=== PATIENT | male | born 1945 | race Caucasian/White ===

== ENCOUNTER → 2016-08-12 | Day surgery (SDC) | payer OTHER ==
[2016-08-05 08:34] VITALS: Ht 166.4 cm; Wt 68.2 kg
--- NOTE | 2016-08-11 21:29 | HISTORY & PHYSICAL EXAMINATION ---
DATE OF ADMISSION: 05/08/2015 DIAGNOSIS: Perforation of the left ear. HISTORY OF PRESENT ILLNESS: This 71-year-old gentleman presented with a history of perforation of the left ear after a welding burn. He had a repair in [place] which was unsuccessful. He also underwent repair at [facility] by mo last year which was again unsuccessful. The patient still desires repair of the left tympanic membrane. PAST MEDICAL HISTORY: Medical problems: Hypertension, acid reflux, and arthritis. MEDICATIONS: Meloxicam, gabapentin, vitamin D, Zocor, and lisinopril. ALLERGIES: HE DOES NOT TOLERATE PAIN MEDICATIONS VERY WELL. PREVIOUS SURGERIES: Right knee in February [address] Echeverria and left ear surgery by me in April 2015. REVIEW OF SYSTEMS: Otherwise, negative. PHYSICAL EXAMINATION: GENERAL: WNWD male. VITAL SIGNS: 5 feet 5 inches and 150 pounds. HEAD: Normocephalic. EYES: Normal. EARS: Perforation of the left tympanic membrane. NOSE: Nasal passages patent. THROAT: Oropharynx normal. NECK: Supple. HEART: RRR. LUNGS: Clear. ABDOMEN: Soft. IMPRESSION: Perforation of the left tympanic membrane. PLAN: Plan is for tympanoplasty.
[~2016-08-12] VITALS: Ht 166.4 cm; Wt 68.2 kg
[~2016-08-12] MED LIST: ATROPINE SULFATE 0.1 MG/ML 5ML SYR IV PRN; CEFAZOLIN 1000MG/55 ML D5W IV SCH; CHOL100010 PO; COEN50CA22 PO; EpHEDrine SULFATE INJ 50 MG/ML AMP IV PRN; FENTANYL CITRATE INJ 50 MCG/1 ML 2 ML VIAL IV PRN; FENTANYL CITRATE INJ 50 MCG/1 ML 2 ML VIAL ONE; FLUT0.15 NAE; GELATIN SPONGE 12-7MM ONE; LACTATED RINGER'S 1000ML 1,000 ML IV SCH; LIDO 2%/EPINEPHRINE 1:100000 20 ML VIAL INFIL ONE; LISI-461 PO; MELO15TA4 PO; MIDAZOLAM HCL 1 MG/ML 2ML VIAL ONE; NEOMYCIN/POLYMYXIN/BACITR/HC 15 GM TUBE ONE; NEOMYCIN/POLYMYXIN/HYDROCORT OPH SUSP 7.5 ML BTL ONE; NRN/300 PO; NRN/600 PO; ONDANSETRON INJ 2 MG/ML 2 ML VIAL IV PRN; ONDANSETRON INJ 2 MG/ML 2 ML VIAL ONE; PANT40TA PO; SIMV40TA2 PO; SODIUM CHLORIDE 0.9% 1000ML 1,000 ML IV SCH
--- NOTE | 2016-08-12 08:37 | History & Physical Bridge Note ---
H&P Re-Evaluation Bridge Note: I have examined the patient, reviewed the History & Physical and in the interval since the performance of the History & Physical I have noted the following changes of clinical significance: No changes noted
[2016-08-12 10:05] VITALS: TEMP 36.6
--- NOTE | 2016-08-12 10:17 | Discharge Instructions-SurgCtr ---
Discharge Instructions Date of Service August 12, 2016. Visit Reason for Visit: Left Ear Perforation Discharge Discharge Diagnosis / Problem: same Discharge Goals Goal(s): Therapeutic intervention Activity Recommendations Activity Limitations: per Instructions/Follow-up section Anesthesia . Post Anesthesia Instructions: If you have had General Anesthesia or IV Sedation: * Do not drive today. * Resume driving when surgeon permits. * Do not make important decisions or sign legal documents today. * Call surgeon for: 1. Temperature elevations greater than 101 degrees F. 2. Uncontrollable pain. 3. Excessive bleeding. 4. Persistent nausea and vomiting. 5. Medication intolerance (nausea, vomiting or rash). * For nausea and vomiting use only clear liquids such as: tea, soda, bouillon until nausea subsides, then gradually increase diet as tolerated. * If you have any concerns or questions, call your surgeon's office. If physician is unavailable and it is an emergency, call 911 or go to the nearest emergency room. . Instructions / Follow-Up Instructions / Follow-Up ACTIVITY RECOMMENDATIONS: No limitations OVER THE COUNTER MEDICATIONS: Continue any other previous medications unless otherwise indicated by your surgeon. * You may use Tylenol for mild pain as per bottle instructions. SPECIAL CARE INSTRUCTIONS: * Keep operative ear dry. * Change cotton balls 4 times per day. Leave packing in ear. * Sneeze with your mouth open. * Do not blow your nose. Sniff back instead. * Please call with any increasing pain, increasing drainage, active bleeding, redness and/or swelling, or any concerns. Dr. Hatfield's office number is . FOLLOW UP VISIT: If not already scheduled, please call to schedule follow-up appointment with Dr. Hatfield. Diet Recommendations Home Diet: no limitations Procedures Procedures Performed: Left Ear Tympanoplasty Pending Studies Studies pending at discharge: no Medical Emergencies . Who to Call and When: Medical Emergencies: If at any time you feel your situation is an emergency, please call 911 immediately. . Non-Emergent Contact Non-Emergency issues call your: Primary Care Provider . . "Provider Documentation" section prepared by Xochilt Hatfield. . [place] Drug Monitoring Program Search Results: no issues identified
--- NOTE | 2016-08-12 10:17 | Anesthesia Progress Nt - [facility] ---
Anesthesia Post Op Note Date & Time August 12, 2016 at 10:17 Vital Signs Pain Intensity: 0 Vital Signs Past 12 Hours Date Time Temp Pulse Resp B/P Pulse Ox O2 Delivery O2 Flow Rate FiO2 08/12/16 10:05 36.6 69 14 143/91 98 Room Air 08/12/16 07:37 36.5 66 16 119/81 96 Room Air Notes Mental Status: alert / awake / arousable, participated in evaluation Pt Amnestic to Procedure: Yes Nausea / Vomiting: adequately controlled Pain: adequately controlled Airway Patency, RR, SpO2: stable & adequate BP & HR: stable & adequate Hydration State: stable & adequate Anesthetic Complications: no major complications apparent
[2016-08-12 10:29] VITALS: BP 125/80; PULSE 72; O2SAT 98
--- NOTE | 2016-08-12 11:51 | OPERATIVE REPORT ---
DATE OF OPERATION: 08/12/2016 PREOPERATIVE DIAGNOSIS: Perforation of the left tympanic membrane. POSTOPERATIVE DIAGNOSIS: Same. PROCEDURE: Tympanoplasty left ear. SURGEON: Dr. Hatfield. ANESTHESIA: Local with sedation. COMPLICATIONS: None. BLOOD LOSS: Less than 5 mL. HISTORY OF PRESENT ILLNESS: This 71-year-old gentleman presented with a perforation of the left ear from a welding burn, was repaired in [place] once and also [place] once last April. He continues to have a residual 3 mm perforation much smaller than the large perforation that he had. Because of the conductive component of the hearing loss, the patient requested definitive treatment. OPERATION AND FINDINGS: PROCEDURE: The patient was brought to the operating room and placed in supine position. He was sedated, prepped with Betadine paint and draped in usual sterile manner. The left canal was visualized and cleaned of cerumen, injected with 2% Xylocaine with 1:100,000 strength epinephrine as was the supra-auricular area. The supra-auricular incision was made using the 15 blade, carried down through the skin and subcutaneous layer and a piece of temporalis fascia was harvested and set aside for use later in the fascia press. Bleeding was controlled using the needle point Bovie and the incision was closed with interrupted 4-0 Vicryl sutures and Dermabond on the skin. Attention was turned to the canal. Incision was made at 11 o'clock anteriorly and then incised with [place] blade and then continuing the incision inferiorly onto the inferior canal wall and then onto the posterior canal wall in a curvilinear fashion. The tympanomeatal flap was elevated using the [place] blade and also using the round knife entering the middle ear space in the hypotympanum and then continuing the elevation superiorly into the previously made incision at 11:00. The canal skin was also elevated from the posterior and inferior canal wall and the entire tympanomeatal flap was reflected superiorly. In this manner the middle ear was exposed. Ossicular continuity was noted to be intact. Middle ear space was filled with pieces of dry Gelfoam and temporalis fascia was placed in the underlay manner tucked anteriorly and superiorly and placed onto the annulus anteriorly and inferiorly along the canal wall. The tympanomeatal flap was reflected back into its original position. All the edges of the perforation had been freshened using the right angle pick. The graft was noted to be covering all edges of the perforation and protruding only slightly from the perforation. Then this graft along with the tympanomeatal flap was packed back into the canal wall in its original position with pieces of Gelfoam, at first dry and then later dipped with Cortisporin. The canal was then filled with Cortisporin ointment. The cotton dressing was placed in the canal. The patient tolerated the procedure well and was taken to recovery area in satisfactory condition. I attest to the content of the Intraoperative Record and any orders documented therein. Any exceptio ns are noted below.
== END | disposition home or self-care (01) ==
LOC: X.SURG 06:47
PROVIDERS: ATTEND Otolaryngology
DX: H72.92 Unspecified perforation of tympanic membrane, left ear (principal)

== ENCOUNTER 2020-01-10 10:28 | Inpatient (IN) ==
--- NOTE | 2019-12-31 16:46 | PAT Medication Instructions ---
Medication Instructions Date of Service December 31, 2019 Home Medications cholecalciferol (vitamin D3) [Vitamin D3] 25 mcg PO QAM coenzyme Q10 [Co Q-10] 50 mg PO PM fluticasone propionate [Flonase] 1 spray INTRANASAL QAM gabapentin 300 mg PO QAM gabapentin 600 mg PO HS lisinopril 10 mg PO QAM meloxicam 15 mg PO QAM nifedipine 30 mg PO PM pantoprazole 40 mg PO PM simvastatin 40 mg PO PM ASK your surgeon for instructions meloxicam 15 mg PO QAM STOP taking 2 weeks before surgery coenzyme Q10 [Co Q-10] 50 mg PO PM DO NOT take the morning of surgery cholecalciferol (vitamin D3) [Vitamin D3] 25 mcg PO QAM lisinopril 10 mg PO QAM Take morning of surgery With a small sip of water, OTHERWISE NOTHING TO EAT OR DRINK AFTER MIDNIGHT: fluticasone propionate [Flonase] 1 spray INTRANASAL QAM gabapentin 300 mg PO QAM Take evening before surgery gabapentin 600 mg PO HS nifedipine 30 mg PO PM pantoprazole 40 mg PO PM simvastatin 40 mg PO PM Other Notes If you have any questions please call us at [phone] or [phone] or [phone] or [phone]
--- NOTE | 2020-01-01 14:01 | Anesthesiology Consultation ---
Date of Service January 01, 2020 Assessment & Plan (1) Encounter for pre-operative examination: COVID Status: As of 12/31 assessment, patient denies travel to endemic area, known exposure/sick contacts, or symptoms of COVID19. Patient instructed that they and their household members must follow strict social distancing guidelines, wear a mask in public and avoid travel for 14 days prior to surgery. Preoperative COVID19 testing to be completed prior to surgery per surgeon's ar rangements. Patient made aware to self-isolate as much as possible between COVID testing and surgery. Chart Review Chart Review: Acceptable Risk for Surgery and Patient seen in Pre Admission Testing Teaching & Discussion Instructed NPO after midnight before surgery, except medications with 15 cc of w ater. Medication instructions provided according to the PAT guidelines. History Surgery Operation Date: 01/10/20 11:55 Proposed Procedures p L4-S1 Decompression and Fusion, L3-L4 Hardware Removal, Spinal Cord Monitoring - Rodolfo Valverde, Height/Weight Height: 5 ft 5.5 in Weight: 72.3 kg Allergies Allergy/AdvReac Type Severity Reaction Status Date / Time amitriptyline Allergy Unknown UNKNOWN Verified 12/25/19 14:19 REACTION cyclobenzaprine Allergy Unknown UNKNOWN Verified 12/25/19 14:19 REACTION prednisone Allergy Elevated Verified 01/01/20 14:02 BP, chest pain, couldn't breathe codeine AdvReac Mild GI UPSET Verified 12/25/19 14:19 etodolac AdvReac Mild gi upset Verified 12/25/19 14:19 morphine AdvReac Mild GI UPSET Verified 12/25/19 14:19 Medications Home Medications Medication Instructions Recorded Confirmed Last Taken cholecalciferol (vitamin D3) 25 mcg PO QAM 12/25/19 12/25/19 Unknown [Vitamin D3] coenzyme Q10 [Co Q-10] 50 mg PO PM 12/25/19 12/25/19 Unknown fluticasone propionate [Flonase] 1 spray INTRANASAL QAM 12/25/19 12/25/19 Unknown gabapentin 300 mg PO QAM 12/25/19 12/25/19 Unknown gabapentin 600 mg PO HS 12/25/19 12/25/19 Unknown lisinopril 10 mg PO QAM 12/25/19 12/25/19 Unknown meloxicam 15 mg PO QAM 12/25/19 12/25/19 Unknown nifedipine 30 mg PO PM 12/25/19 12/25/19 Unknown pantoprazole 40 mg PO PM 12/25/19 12/25/19 Unknown simvastatin 40 mg PO PM 12/25/19 12/25/19 Unknown Past Medical History Medical History (Updated 01/01/20 @ 14:03 by Max Vo) Degenerative disc disease GERD (gastroesophageal reflux disease) Hyperlipidemia Hypertension Osteoarthritis Exercise / Class Metabolic Activity II 4-5 Yardwork/Stairs/Walk up hill Past Surgical History Surgical History (Updated 01/01/20 @ 13:57 by Max Vo) Fusion of spine L3-L4 History of arthroscopy RIGHT SHOULDER History of carpal tunnel release BILAT History of colonoscopy History of right knee joint replacement with subsequent revision History of tonsillectomy History of tooth extraction Hx of inguinal hernia repair X2 Hx of thumb surgery BILAT Hx of vasectomy Past Anesthesia History No Hx of Anesthesia Complications and No Family Hx of Anesthesia Complications History of PONV No Hx of PONV and No Hx of Motion Sickness Social History Smoking Status: Former smoker Do You Dip or Chew Tobacco: No Smoking End Date: 35 YRS AGO Hx Alcohol Use: No Hx Substance Use: No substance use type: does not use Review of Systems Pt denies any recent chest pain, shortness of breath, palpitations, cough, fever, URI, or uncontrolled acid reflux. Physical Exam Vital Signs BP: 113/70 P: 84bpm SPO2: 96% RA T: 98.2 F R: 12 ENMT Mouth: + dentures (full set) Thyromental Distance: > or= 3.5 Finger Breadths Mallampati Class: I Neck normal visual inspection; neck extension not limited Respiratory normal respiratory effort Auscultation: lungs clear to auscultation bilaterally Cardiovascular Rate/Rhythm: regular rate and regular rhythm Heart Sounds: no murmur Vessels: no carotid bruit Extremities: no edema Testing Laboratory Results PT 10.6 Seconds (9.0-12.0) 01/01/20 14:10 INR 1.0 (0.9-1.1) 01/01/20 14:10 APTT 28.7 Seconds (21.0-31.0) 01/01/20 14:10 Blood Type O Positive 01/01/20 14:10 Antibody Screen NEGATIVE 01/01/20 14:10 11/20/19 WBC: 7.2 H/H: 14.8/45.2 PLATELETS: 288 SODIUM: 135 POTASSIUM: 4.7 CHLORIDE: 102 CO2: 24 BUN: 12 CREATININE: 1.0 GLUCOSE: 81 UA: WNL Electrocardiogram Date: 01/01/20 Findings: + RBBB and + no change from (2016) Chest X-Ray Date: 01/01/20 Findings: + NAD
--- NOTE | 2020-01-01 14:29 | XRay Report ---
XR chest Pre-admission PA/Lat CLINICAL HISTORY: Preoperative chest COMPARISON STUDY: 02/05/2016 FINDINGS: The cardiac and mediastinal contours are normal. There is no evidence of focal pulmonary co nsolidation. There is no evidence of failure. No pleural effusions are visualized.[Underlying emphyse ma is suspected. There is a thoracolumbar scoliosis. Linear opacities within the right midlung zone, likely representing atelectasis/scarring. IMPRESSION: No active disease in the chest. ACT 112: Negative or not required by law. Electronically signed by: Juan Damon M.D. 01/01/2020 2:27 PM
--- NOTE | 2020-01-01 14:29 | Electrocardiogram Report ---
Test Reason : Blood Pressure : / mmHG Vent. Rate : 078 BPM Atrial Rate : 078 BPM P-R Int : 172 ms QRS Dur : 130 ms QT Int : 382 ms P-R-T Axes : 078 068 048 degrees QTc Int : 435 ms Normal sinus rhythm Right bundle branch block Abnormal ECG When compared with ECG of 05-FEB-2016 15:02, No significant change was found Confirmed by Maurice Mcfadden ([id number]) on 01/01/2020 2:28:54 PM Referred By: Rodolfo Valverde Confirmed By:Maurice Mcfadden
[2020-01-01 15:13] LABS: Partial Thromboplastin Time 28.7 Seconds (21.0-31.0); Prothrombin Time 10.6 Seconds (9.0-12.0)
[~2020-01-10 10:28] MED LIST changes: +ACETAMINOPHEN 500 MG TAB PO SCH; -ATROPINE SULFATE 0.1 MG/ML 5ML SYR IV PRN; -CEFAZOLIN 1000MG/55 ML D5W IV SCH; -CHOL100010 PO; -COEN50CA22 PO; +CeleBREX 200 MG CAP PO SCH; -EpHEDrine SULFATE INJ 50 MG/ML AMP IV PRN; -FENTANYL CITRATE INJ 50 MCG/1 ML 2 ML VIAL IV PRN; -FENTANYL CITRATE INJ 50 MCG/1 ML 2 ML VIAL ONE; -FLUT0.15 NAE; +GABAPENTIN 300 MG CAP PO SCH; -GELATIN SPONGE 12-7MM ONE; -LACTATED RINGER'S 1000ML 1,000 ML IV SCH; -LIDO 2%/EPINEPHRINE 1:100000 20 ML VIAL INFIL ONE; -LISI-461 PO; +LR 15ML/HR IV SCH; -MELO15TA4 PO; -NEOMYCIN/POLYMYXIN/BACITR/HC 15 GM TUBE ONE; -NEOMYCIN/POLYMYXIN/HYDROCORT OPH SUSP 7.5 ML BTL ONE; -NRN/300 PO; -NRN/600 PO; -ONDANSETRON INJ 2 MG/ML 2 ML VIAL IV PRN; -ONDANSETRON INJ 2 MG/ML 2 ML VIAL ONE; -PANT40TA PO; -SIMV40TA2 PO; -SODIUM CHLORIDE 0.9% 1000ML 1,000 ML IV SCH; +ceFAZolin 1000MG 1,000 MG/7.5 ML SYR IV SCH; +fentaNYL citrate 100 MCG/2 ML VIAL ONE
[2020-01-10] MEDS ORDERED: HYDROmorphone INJ 1 MG/ML SYRINGE IV PRN ×2 (10:40→16:00)
[2020-01-10] MEDS ORDERED: fentaNYL citrate 100 MCG/2 ML VIAL IV PRN (10:40)
[2020-01-10] MEDS ORDERED: ePHEDrine sulfate 50 MG/ML AMP IV PRN (10:40)
[2020-01-10] MEDS ORDERED: ONDANSETRON INJ 2 MG/ML 2 ML VIAL IV PRN ×2 (10:40→15:43)
[2020-01-10] MEDS ORDERED: ATROPINE SULFATE 0.1 MG/ML 10ML SYR IV PRN (10:40)
[2020-01-10] MEDS ORDERED: BACITRACIN INJ 50,000 UNIT VIAL ONE (11:00)
[2020-01-10] MEDS ORDERED: BUPIVACAINE/EPINEPHRINE 0.25% 1:200,000 30 ML VIAL ONE (11:00)
--- NOTE | 2020-01-10 11:00 | History & Physical Bridge Note ---
Date of Service January 10, 2020 History & Physical Bridge Note I have examined the patient, reviewed the History & Physical and in the interval since the performance of the History & Physical I have noted the following changes of clinical significance: no changes noted
--- NOTE | 2020-01-10 11:01 | History & Physical Report ---
Date of Service January 10, 2020 Assessment & Plan (1) Neurogenic claudication due to lumbar spinal stenosis: Admission and Anticipated Discharge Date Admission Date: L4-S1 decompression fusion, L3-4 hardware removal History of Present Illness Chief Complaint: Back and leg pain Primary Care Provider: Susan Lugo This is a 74-year-old male who presents with chronic persistent back and leg pain. Failing course of nonoperative care is here for surgical invention. Allergies Allergy/AdvReac Type Severity Reaction Status Date / Time amitriptyline Allergy Unknown UNKNOWN Verified 01/10/20 11:01 REACTION cyclobenzaprine Allergy Unknown UNKNOWN Verified 01/10/20 11:01 REACTION prednisone Allergy Elevated Verified 01/10/20 11:01 BP, chest pain, couldn't breathe codeine AdvReac Mild GI UPSET Verified 01/10/20 11:01 etodolac AdvReac Mild gi upset Verified 01/10/20 11:01 morphine AdvReac Mild GI UPSET Verified 01/10/20 11:01 Home Medications Home Medications Medication Instructions Recorded Confirmed Type cholecalciferol (vitamin D3) 25 mcg PO QAM 12/25/19 12/25/19 History [Vitamin D3] coenzyme Q10 [Co Q-10] 50 mg PO PM 12/25/19 12/25/19 History fluticasone propionate [Flonase] 1 spray INTRANASAL QAM 12/25/19 12/25/19 History gabapentin 300 mg PO QAM 12/25/19 12/25/19 History gabapentin 600 mg PO HS 12/25/19 12/25/19 History lisinopril 10 mg PO QAM 12/25/19 12/25/19 History meloxicam 15 mg PO QAM 12/25/19 12/25/19 History nifedipine 30 mg PO PM 12/25/19 12/25/19 History pantoprazole 40 mg PO PM 12/25/19 12/25/19 History simvastatin 40 mg PO PM 12/25/19 12/25/19 History Past Med/Surg History Medical History (Updated 01/10/20 @ 11:01 by Rodolfo Valverde DO) Degenerative disc disease GERD (gastroesophageal reflux disease) Hyperlipidemia Hypertension Osteoarthritis Surgical History (Updated 01/01/20 @ 13:57 by Max Vo) Fusion of spine L3-L4 History of arthroscopy RIGHT SHOULDER History of carpal tunnel release BILAT History of colonoscopy History of right knee joint replacement with subsequent revision History of tonsillectomy History of tooth extraction Hx of inguinal hernia repair X2 Hx of thumb surgery BILAT Hx of vasectomy Social History Smoking Status: Former smoker Smoking End Date: 35 YRS AGO; Second Hand Exposure: Yes; Do You Dip or Chew Tobacco: No; Tobacco Cessation Education Requested by Patient: No Hx Alcohol Use: No Hx Substance Use: No Preferred Language: Colombian Communication Ability: Effective Oral Surgery Physician Required: No Beliefs That Will Affect Care: None Current Living Situation: Spouse Other Information That Helps Us Care for You: No Feels Safe at Home: Yes Safety Concerns: Feels Safe At This Time Assistive Devices: Denture - Upper, Denture - Lower, Glasses and Hearing Aid - Bilateral Physical Exam Physical Exam: Patient alert and oriented Heart regular rate and rhythm Lungs clear to auscultation
[2020-01-10] MEDS ORDERED: LIDOCAINE HCL 2% 2 ML VIAL/AMP(20MG/ML) INFIL ONE (12:14)
[2020-01-10] MEDS ORDERED: GLYCOPYRROLATE 0.2 MG/ML VIAL ONE (12:14)
[2020-01-10] MEDS ORDERED: PROPOFOL IV EMULSION 10 MG/ML 20 ML VIAL IV ONE (12:14)
[2020-01-10] MEDS ORDERED: ePHEDrine sulfate 50 MG/ML SYR ONE (12:14)
[2020-01-10] MEDS ORDERED: ROCURONIUM BROMIDE 10 MG/ML 5 ML VIAL IV ONE (12:14)
[2020-01-10] MEDS ORDERED: fentaNYL citrate 100 MCG/2 ML VIAL ONE (12:14)
[2020-01-10] MEDS ORDERED: NEOSTIGMINE METHYLSULFATE 1 MG/ML 10ML VIAL ONE (12:14)
[2020-01-10] MEDS ORDERED: DEXAMETHASONE SOD INJ 4 MG/ML VIAL ONE (12:14)
[2020-01-10] MEDS ORDERED: LARYING-O-JET KIT (LTA) ONE (12:14)
[2020-01-10] MEDS ORDERED: ONDANSETRON INJ 2 MG/ML 2 ML VIAL ONE (12:14)
[2020-01-10] MEDS ORDERED: PHENYLEPHRINE 100MCG/ML 5ML SYR ONE ×2 (12:14→12:25)
[2020-01-10] MEDS ORDERED: FLOSEAL HEMOSTATIC MATRIX 10ML TOP ONE (12:26)
--- NOTE | 2020-01-10 13:55 | Operative Report ---
Post Operative Report Pre & Post Diagnosis Operation Date: 01/10/20 11:40 Pre-Op Diagnosis: Neurogenic claudication due to lumbar spinal stenosis Post-Op Diagnosis: Neurogenic claudication due to lumbar spinal stenosis I identified the patient and participated in the time-out.: Yes Procedure Operation Date: 01/10/20 11:40 Actual Procedures #1 removal of posterior instrumentation L3-L4. #2 exploration of fusion L3-L4. #3 lumbar decompression with bilateral medial facetectomies and foraminotomies L4-5 and L5-S1. #4 posterior spinal fusion L3-4 L4-5 and L5-S1. #5 placement posterior segmental instrumentation L3-S1. #6 interbody fusion L4-5 L5-S1. #7 placement peek cage 10 x 22 mm at L4-5 and 12 x 22 mm at L5-S1. #8 placement locally harvested morselized autograft in the posterior gutters. #9 placement infuse collagen sponge, master graft in the posterior lateral gutters and ostial amp interbody space. Surgeon Rodolfo Valverde, Pedicab Driver Kaela Izaguirre Estimated Blood Loss 200 Findings Consistent with Post-Op Diagnosis Specimens None Indications This is a 74-year-old male well-known to the presents with marked decline in status continued leg pain is here for surgical invention. Description of Procedure Patient was met with identified informed consent obtained. Patient was then taken to the operative suite underwent an patient placed in a prone position the Christian table on top of the Ramu frame. All bony prominences well-padded eyes inspected to ensure no external pressure placed upon the. This point the lumbar spine is prepped and draped in the normal sterile fashion. Sharp dissection with the assistance of Bovie cautery was performed until exposing the instrumentation at L3 and L4 as well as the lamina and transverse processes of L4-L5 and sacral ala bilaterally. Then proceeded move the hardware at L3 and L4 bilaterally explore the fusion mass noting it to be loose. There is evidence of nonunion. I then proceeded to perform complete laminectomy of L5 and L4 including bilateral medial facetectomies and foraminotomies addressing severe spinal stenosis. Pedicle screws were then placed in L3-L4-L5 and S1 levels bilaterally with assistance of fluoroscopy and the proper sized ignacio placed. By way the transforaminal approach on the left complete discectomy will 5 S1 was performed endplates curetted to subcortical any bone and a 12 x 22 mm peek cage filled osteobone graft tapped in position. Then proceeded L4-[address] of a transforamen approach and left complete discectomy performed endplates curetted to subcortical bleeding bone and a 10 x 22 mm peek cage filled with osteobone graft tapped position. The rods were then locked into final position bilaterally. The transverse processes of L3-L4-L5 and the sacral ala burred to subcortical bleeding bone. Infuse collagen sponge master graft of autograft was placed in the posterior lateral gutters. 15 round EILEEN drain inserted. The incision was then closed with 1 Vicryl in the fascia 2-0 Vicryl subcutaneously and 4 Monocryl for final skin closure. Steri-Strip sterile dressings placed. Patient was then taken to PACU stable condition. Please note spinal cord monitoring was utilized that the procedure no changes noted. Lastly Kaela Izaguirre was present at the entire surgery involved the patient positioning complex portions of the surgery and final skin closure. I attest to the content of the Intraoperative Record and any orders documented therein. Any exceptions are noted below.
--- NOTE | 2020-01-10 13:59 | Fluoroscopy Report ---
FL lumbar spine 2-3V CLINICAL HISTORY: L4-S1 DECOMPRESSION AND FUSION/ L3-L5 HW REMOVAL COMPARISON STUDY: None FLUOROSCOPY TIME: 29 seconds. NUMBER OF FLUOROSCOPIC IMAGES: 4 FINDINGS: 4 intraoperative fluoroscopic spot images reveal postsurgical changes of L4-5 and L5-S1 dis cectomies and interbody fusions. There are pedicle screws and adjoining spinal rods at the L3-S1 leve l. IMPRESSION: Intraoperative fluoroscopic spot films obtained during a spinal decompression and fusion . ACT 112: Negative or not required by law. Electronically signed by: Juan Damon M.D. 01/10/2020 1:58 PM
--- NOTE | 2020-01-10 15:17 | Anesthesiology Progress Note ---
Date of Service January 10, 2020 Anesthesia Post Procedure Vital Signs Vital Signs: Temp Pulse Pulse Resp BP BP Pulse Ox 01/10/20 15:05 36.5 C 60 12 124/65 100 01/10/20 14:55 61 12 120/57 L 100 01/10/20 14:45 69 12 110/67 100 01/10/20 14:35 59 L 12 108/56 L 100 01/10/20 14:25 56 L 10 L 89/49 L 99 01/10/20 14:15 58 L 10 L 110/60 100 01/10/20 14:07 36.3 C L 73 16 112/78 100 01/10/20 11:06 36.8 C 81 20 144/80 H 99 Pain Intensity Back: Pain Intensity: 0 Transfer of Care Handoff Completed per policy Notes Mental Status: alert / awake / arousable and participated in evaluation Patient Amnestic to Procedure: Yes Nausea / Vomiting: adequately controlled Pain: adequately controlled Airway Patency, RR, SpO2: stable & adequate BP & HR: stable & adequate Hydration State: stable & adequate Anesthetic Complications: no major complications apparent and Pt Satisfied with anesthetic care
[2020-01-10] MEDS ORDERED: ALUMINUM/MAGNESIUM SUSP 30 ML UDC PO PRN (15:43)
[2020-01-10] MEDS ORDERED: METOCLOPRAMIDE HCL INJ 5 MG/ML 2 ML VIAL IV PRN (15:43)
[2020-01-10] MEDS ORDERED: PROMETHAZINE HCL 12.5 MG in SODIUM CHLORIDE 0.9% 50 ML IV PRN (15:43)
[2020-01-10] MEDS ORDERED: DO NOT ADMINISTER PNEUMOCOCCAL VACCINE PRN (15:43)
[2020-01-10] MEDS ORDERED: LORazepam 0.5 MG TAB PO PRN (15:43)
[2020-01-10] MEDS ORDERED: NALOXONE HCL 0.4 MG/1 ML VIAL/CARP IV PRN (15:43)
[2020-01-10] MEDS ORDERED: SOD PHOSPHATE/SOD BIPHOSPHATE ENEMA 132 ML BTL PR PRN (15:43)
[2020-01-10] MEDS ORDERED: DO NOT ADMINISTER FLU VACCINE PRN (15:43)
[2020-01-10] MEDS ORDERED: FAMOTIDINE 20 MG TAB PO PRN (15:43)
[2020-01-10] MEDS ORDERED: ACETAMINOPHEN 1,000 MG/100 ML VIAL IV PRN (15:43)
[2020-01-10] MEDS ORDERED: ONDANSETRON 4 MG OD TAB PO PRN (15:43)
[2020-01-10] MEDS ORDERED: diphenhydrAMINE Capsule 25 MG CAP PO PRN (15:43)
[2020-01-10] MEDS ORDERED: MAGNESIUM HYDROXIDE SUSP 30 ML UDC PO PRN (15:43)
[2020-01-10] MEDS ORDERED: oxyCODONE HCL IR 5 MG TAB (IMMEDIATE RELEASE) PO PRN (15:43)
[2020-01-10] MEDS ORDERED: HYDROmorphone INJ 0.5 MG/0.5 ML SYR IV PRN (15:43)
[2020-01-10] MEDS ORDERED: traMADol HCL 50 MG TABLET PO PRN (15:43)
[2020-01-10] MEDS ORDERED: bisacodyL 10 MG SUPP PR PRN (15:43)
[2020-01-10] MEDS ORDERED: hydrOXYzine HCl 25 MG TAB PO PRN (15:43)
[2020-01-10] MEDS ORDERED: LORazepam 0.5 MG/1 ML VIAL IV PRN (15:43)
[2020-01-10] MEDS ORDERED: SODIUM CHLORIDE 0.9% 1000ML 1,000 ML IV SCH (16:00)
--- NOTE | 2020-01-10 16:48 | Hospitalist Consultation ---
Date of Consultation January 10, 2020 Assessment & Plan (1) Neurogenic claudication due to lumbar spinal stenosis: - POD#0 L4-S1 decompression and fusion, L3-L4 hardware removal by Dr. Valverde - activity and wound care orders as per ortho - pain control with bowel regimen - PT/OT - monitor H/H for acute blood loss anemia and transfuse blood products PRN - EBL 200 cc (2) Hypertension: -BP controlled, continue lisinopril (3) Raynauds disease: -Continue nifedipine (4) DVT prophylaxis: -TEDs/SCDs as per spine Ortho Thank you for this consultation. We will follow the patient with you during their hospital stay. You can reach a member of the [facility] Hospitalist Team 11/10 via pager @ [phone]. Supervising Physician Co-Signing Physician Notes Attending Addendum: care coordinated with SARBJIT Roberts please refer to her notes for full details, I agree with her notes patient seen and examined, records reviewed by myself as well on exam, patient is sleeping but easily awakened, not in distress States he feels fine overall, pain over the surgical site is moderate, relieved by as needed analgesics Denies chest pain, shortness of breath, palpitations, dizziness, nausea Reports foreign body sensation in the left eye with mild discomfort no other symptoms VS noted and reviewed oriented x3, not in distress, speaks in sentences with no effort nor accessory muscle use Left leg: Positive mild conjunctival injection, hyperemia of the inner lids, scant crusting noted on the eyelids normal rate, regular rhythm, no murmurs clear breath sounds bilaterally non distended, soft, nontender no bipedal edema, erythema, warmth no neuro deficits No labs performed today ASSESSMENT AND PLAN Status post lumbar spine decompression and fusion Stable overall Check CBC tomorrow DVT prophylaxis per orthopedic service Left eye bacterial conjunctivitis Start polymyxin ophthalmic drops 4 times daily Monitor Hypertension Stable, continue lisinopril History of Raynaud disease Continue nifedipine other diagnoses and plan of care as per SARBJIT Roberts Thank you for this consultation. We will follow the patient with you during their hospital stay. You can reach a member of the [facility] Hospitalist Team 11/10 via pager @ [phone]. Max Savage MD History of Present Illness Reason for Consultation: Postop medical management Requesting Physician: Dr. Valverde Attending Physician: Dr. Savage History of Present Illness 74-year-old male with PMH HTN, Raynaud's disease, lipidemia, and other problems listed below who is status post L4-S1 decompression and fusion and L3 through L4 hardware removal today by Dr. Valverde. Postoperatively, the patient is doing well. He reports his pain is currently jonas 6/10, just received pain medication. Denies any numbness, tingling, weakness to lower extremities. No chest pain or shortness of breath. Denies lightheadedness or dizziness. No abdominal pain or nausea. Blackmon catheter is in place draining clear urine. Allergies Allergy/AdvReac Type Severity Reaction Status Date / Time amitriptyline Allergy Unknown UNKNOWN Verified 01/10/20 11:01 REACTION cyclobenzaprine Allergy Unknown UNKNOWN Verified 01/10/20 11:01 REACTION prednisone Allergy Elevated Verified 01/10/20 11:01 BP, chest pain, couldn't breathe codeine AdvReac Mild GI UPSET Verified 01/10/20 11:01 etodolac AdvReac Mild gi upset Verified 01/10/20 11:01 morphine AdvReac Mild GI UPSET Verified 01/10/20 11:01 Home Medications Home Medications Medication Instructions Recorded Confirmed Type cholecalciferol (vitamin D3) 25 mcg PO QAM 12/25/19 01/10/20 History [Vitamin D3] coenzyme Q10 [Co Q-10] 50 mg PO PM 12/25/19 01/10/20 History fluticasone propionate [Flonase] 1 spray INTRANASAL QAM 12/25/19 01/10/20 History gabapentin 300 mg PO QAM 12/25/19 01/10/20 History gabapentin 600 mg PO HS 12/25/19 01/10/20 History lisinopril 10 mg PO QAM 12/25/19 01/10/20 History meloxicam 15 mg PO QAM 12/25/19 01/10/20 History nifedipine 30 mg PO PM 12/25/19 01/10/20 History pantoprazole 40 mg PO PM 12/25/19 01/10/20 History simvastatin 40 mg PO PM 12/25/19 01/10/20 History Patient History Medical History Degenerative disc disease GERD (gastroesophageal reflux disease) Hyperlipidemia Hypertension Osteoarthritis Raynauds disease Surgical History Fusion of spine L3-L4 History of arthroscopy RIGHT SHOULDER History of carpal tunnel release BILAT History of colonoscopy History of right knee joint replacement with subsequent revision History of tonsillectomy History of tooth extraction Hx of inguinal hernia repair X2 Hx of thumb surgery BILAT Hx of vasectomy Family History Other Family history non-contributory Social History Smoking Status: Former smoker Smoking End Date: 35 YRS AGO; Second Hand Exposure: Yes; Do You Dip or Chew Tobacco: No; Tobacco Cessation Education Requested by Patient: No Hx Alcohol Use: No Hx Substance Use: No Preferred Language: Sudanese Communication Ability: Effective Director Of Student Financial Services Required: No Beliefs That Will Affect Care: None Current Living Situation: Spouse Other Information That Helps Us Care for You: No Feels Safe at Home: Yes Safety Concerns: Feels Safe At This Time Assistive Devices: Denture - Upper, Denture - Lower, Glasses and Hearing Aid - Bilateral Review of Systems Review of Systems: ROS per HPI, all other systems reviewed and negative Physical Exam Constitutional: WD/WN, vitals as above Eyes: PERRL, conjunctivae normal, anicteric sclerae ENMT: external ear and nose normal, oropharynx normal Respiratory: normal respiratory effort, lungs clear to auscultation Cardiovascular: Rate/Rhythm: regular rate and regular rhythm Vessels: normal peripheral pulses Extremities: no edema Gastrointestinal (Abdomen): normal bowel sounds, soft, nontender, no hepatosplenomegaly Musculoskeletal: no cyanosis or clubbing, extremities motor strength 5/5 S/p back surgery, surgical dressing dry and intact, drain in place draining bloody drainage, pedal pushes and pull strong bilaterally Skin: no rashes, warm and dry Neurologic: PERRL, EOMI, accommodation nl, no face palsy, no dysarthria Psychiatric: A+Ox3, euthymic affect Results & Data Results & Data ([facility]) Vital Signs (Past 12 Hours) Vital Signs Temp Pulse Pulse Resp BP BP Pulse Ox 01/10/20 16:35 36.3 C L 94 H 16 121/73 93 01/10/20 16:09 36.3 C L 86 16 118/74 99 01/10/20 15:35 36.4 C L 64 14 119/75 100 01/10/20 15:15 69 12 123/65 100 01/10/20 15:05 36.5 C 60 12 124/65 100 01/10/20 14:55 61 12 120/57 L 100 01/10/20 14:45 69 12 110/67 100 01/10/20 14:35 59 L 12 108/56 L 100 01/10/20 14:25 56 L 10 L 89/49 L 99 01/10/20 14:15 58 L 10 L 110/60 100 01/10/20 14:07 36.3 C L 73 16 112/78 100 01/10/20 11:06 36.8 C 81 20 144/80 H 99
[2020-01-10] MEDS: TRIMETHOPRIM/POLYMYXIN B OP SCH ×2 (18:16→20:55)
[2020-01-10] MEDS: ceFAZolin 2000MG 2,000 MG/15 ML SYR IV SCH (20:55)
[2020-01-10] MEDS: GABAPENTIN 600 MG TAB PO SCH (20:56)
[2020-01-10] MEDS: PANTOprazole 40 MG TAB PO SCH (20:56)
[2020-01-10] MEDS: DOCUSATE SODIUM/SENNA 50/8.6MG TAB PO SCH (20:56)
[2020-01-10] MEDS: NIFEdipine EXTENDED REL 30 MG TABCR PO SCH (20:56)
[2020-01-10] MEDS: SIMVASTATIN 40 MG TAB PO SCH ×2 (20:56→21:06)
[2020-01-10] MEDS ORDERED: NON-FORMULARY MEDICATION (Coenzyme Q10 [Co Q-10] 50 MG) PO SCH (21:00)
[2020-01-10] MEDS ORDERED: Nursing to Pharmacy Communication SCH (21:15)
[2020-01-10] MEDS: ACETAMINOPHEN 500 MG TAB PO PRN (23:20)
[2020-01-11] MEDS: ceFAZolin 2000MG 2,000 MG/15 ML SYR IV SCH (03:26)
[2020-01-11] MEDS: POLYETHYLENE (MIRALAX) 17 GM PACK PO SCH ×3 (05:28→17:06)
[2020-01-11 06:04] LABS: Hematocrit (blood only) 35.5 % (42-52); Hemoglobin 11.9 g/dL (14.0-18.0); Immature Granulocytes # (auto) 0.04 K/uL (0.00-0.02); Immature Granulocytes % (auto) 0.3 %; Lymphocytes # (auto) 0.76 K/uL (1.2-3.4); Lymphocytes % (auto) 6.3 %; Mean Corpuscular Hemoglobin 29.2 pg (25-34); Mean Corpuscular Hgb Conc 33.5 g/dL (32-36); Mean Corpuscular Volume 87.2 fL (80-100); Monocytes # (auto) 1.22 K/uL (0.11-0.59); Monocytes % (auto) 10.1 %; Neutrophils # (auto) 10.05 K/uL (1.4-6.5); Neutrophils % (auto) 83.3 %; Platelet Count 273 K/uL (130-400); RDW Coefficient of Variation 13.6 % (11.5-14.5); RDW Standard Deviation 43.6 fL (36.4-46.3); Red Blood Count 4.07 M/uL (4.7-6.1); White Blood Count 12.07 K/uL (4.8-10.8)
[2020-01-11 06:44] LABS: BUN Creatinine Ratio 12.2 (10-20); Calcium 9.4 mg/dl (8.5-10.1); Creatinine Clr Calc Pharmacy 54.5 ml/min; Est GFR (African American) 77.6; Potassium 4.5 mmol/L (3.5-5.1)
[2020-01-11] MEDS: SIMVASTATIN 40 MG TAB PO SCH (08:45)
[2020-01-11] MEDS: lisinopril 10 MG TAB PO SCH (08:45)
[2020-01-11] MEDS: GABAPENTIN 300 MG CAP PO SCH (08:46)
[2020-01-11] MEDS: CHOLECALCIFEROL 1,000 UNITS 25 MCG TAB PO SCH (08:46)
[2020-01-11] MEDS: FLUTICASONE PROPIONATE NA SPR 16 GM BTL SCH (08:46)
[2020-01-11] MEDS: TRIMETHOPRIM/POLYMYXIN B OPL SCH ×4 (08:46→21:57)
--- NOTE | 2020-01-11 08:48 | Hospitalist Progress Note ---
Date of Service January 11, 2020 Assessment & Plan Admission and Anticipated Discharge Date Admission Date: January 10, 2020 Results & Data Results & Data ([facility]) Vital Signs (Past 12 Hours) Vital Signs Temp Pulse Resp BP Pulse Ox 01/11/20 07:50 36.4 C L 105 H 18 131/78 96 01/11/20 03:28 36.7 C 97 H 16 97/61 L 98 01/10/20 22:33 37.0 C 107 H 16 135/83 99 Laboratory Results 01/11/20 01/11/20 01/10/20 Range/Units 05:36 05:36 11:13 WBC 12.07 H (4.8-10.8) K/uL RBC 4.07 L (4.7-6.1) M/uL Hgb 11.9 L (14.0-18.0) g/dL Hct 35.5 L (42-52) % MCV 87.2 (80-100) fL MCH 29.2 (25-34) pg MCHC 33.5 (32-36) g/dL RDW Std Deviation 43.6 (36.4-46.3) fL RDW Coeff of Yelena 13.6 (11.5-14.5) % Plt Count 273 (130-400) K/uL MPV 9.0 (7.4-10.4) fL Immature Gran % (Auto) 0.3 % Neut % (Auto) 83.3 % Lymph % (Auto) 6.3 % Maury % (Auto) 10.1 % Eos % (Auto) 0.0 % Baso % (Auto) 0.0 % Neut # (Auto) 10.05 H (1.4-6.5) K/uL Lymph # (Auto) 0.76 L (1.2-3.4) K/uL Maury # (Auto) 1.22 H (0.11-0.59) K/uL Eos # (Auto) 0.00 (0-0.5) K/uL Baso # (Auto) 0.00 (0-0.2) K/uL Immature Gran # (Auto) 0.04 H (0.00-0.02) K/uL Sodium 137 (136-145) mmol/L Potassium 4.5 (3.5-5.1) mmol/L Chloride 107 (98-107) mmol/L Carbon Dioxide 27 (21-32) mmol/L Anion Gap 3.0 (3-11) BUN 13 (7-18) mg/dl Creatinine 1.09 (0.6-1.4) mg/dl Est Cr Clr Drug Dosing 54.5 ml/min Est GFR ( Amer) 77.6 Est GFR (Non-Af Amer) 67.0 BUN/Creatinine Ratio 12.2 (10-20) Glucose 118 H (70-99) mg/dl Calcium 9.4 (8.5-10.1) mg/dl Blood Type O Positive Antibody Screen NEGATIVE Crossmatch See Detail Medications Administered Current Inpatient Medications Acetaminophen (Acetaminophen 500 Mg Tab) 1,000 mg PO Q8H PRN PRN Reason: MILD Pain Scale 1,2,3 & Pre PT Stop: 02/09/20 15:59 Last Admin: 01/10/20 23:20 Dose: 1,000 mg Documented by: Al Hydrox/Mg Hydrox/Simethicone (Aluminum/Magnesium Susp 30 Ml Udc) 30 ml PO Q6H PRN PRN Reason: Dyspepsia Stop: 02/09/20 15:42 Bisacodyl (Bisacodyl 10 Mg Supp) 10 mg VT DAILY PRN PRN Reason: Constipation Stop: 02/09/20 15:42 Diphenhydramine HCl (Diphenhydramine Capsule 25 Mg Cap) 25 mg PO Q6H PRN PRN Reason: Allergic Rhinitis/Insomnia Stop: 02/09/20 15:42 Famotidine (Famotidine 20 Mg Tab) 20 mg PO Q12H PRN PRN Reason: Dyspepsia Stop: 02/09/20 15:42 Fluticasone Propionate (Fluticasone Propionate Na Spr 16 Gm Btl) 1 sprays NA QA BUZZ Stop: 02/10/20 08:59 Last Admin: 01/11/20 08:46 Dose: 1 sprays Documented by: Gabapentin (Gabapentin 300 Mg Cap) 300 mg PO QAM [facility] Stop: 02/10/20 08:59 Last Admin: 01/11/20 08:46 Dose: 300 mg Documented by: Gabapentin (Gabapentin 600 Mg Tab) 600 mg PO HS [facility] Stop: 02/09/20 20:59 Last Admin: 01/10/20 20:56 Dose: 600 mg Documented by: Hydromorphone HCl (Hydromorphone Inj 0.5 Mg/0.5 Ml Syr) 0.5 mg IV Q3H PRN PRN Reason: MOD pain (scale 4-6) & Pre PT Stop: 01/24/20 15:42 Last Admin: 01/10/20 16:12 Dose: 0.5 mg Documented by: Hydromorphone HCl (Hydromorphone Inj 1 Mg/Ml Syringe) 1 mg IV Q3H PRN PRN Reason: severe pain (scale 7-10) Stop: 01/24/20 15:59 Hydroxyzine HCl (Hydroxyzine Hcl 25 Mg Tab) 25 mg PO Q8H PRN PRN Reason: Anxiety Stop: 02/09/20 15:42 Lorazepam (Ativan) 0.5 mg in 1 mls @ 0.5 mls/min IV Q8H PRN PRN Reason: Sedation/Anxiety Stop: 02/09/20 15:42 Acetaminophen (Ofirmev) 1,000 mg in 100 mls @ 400 mls/hr IV Q8H PRN PRN Reason: MILD Pain Rating 1,2,3 Stop: 01/11/20 15:42 Promethazine HCl 12.5 mg/ (Sodium Chloride) 50.5 mls @ 204 mls/hr IV Q6H PRN PRN Reason: Nausea &/or Vomiting Stop: 02/09/20 15:42 Influenza Virus Vaccine Quadrival (Do Not Administer Flu Vaccine) 1 ea N/A PRN PRN PRN Reason: Notification Stop: 02/09/20 15:42 Lisinopril (Lisinopril 10 Mg Tab) 10 mg PO [facility] Stop: 02/10/20 08:59 Last Admin: 01/11/20 08:45 Dose: 10 mg Documented by: Lorazepam (Lorazepam 0.5 Mg Tab) 0.5 mg PO Q8H PRN PRN Reason: Sedation/Anxiety Stop: 02/09/20 15:42 Magnesium Hydroxide (Magnesium Hydroxide Susp 30 Ml Udc) 30 ml PO DAILY PRN PRN Reason: Constipation Stop: 02/09/20 15:42 Metoclopramide HCl (Metoclopramide Hcl Inj 5 Mg/Ml 2 Ml Vial) 10 mg IV Q6H PRN PRN Reason: Nausea &/or Vomiting Stop: 02/09/20 15:42 Naloxone HCl (Naloxone Hcl 0.4 Mg/1 Ml Vial/Carp) 0.1 mg IV Q5M PRN; Protocol PRN Reason: Oversedation/Resp Depression Stop: 02/09/20 15:42 Nifedipine (Nifedipine Extended Rel 30 Mg Tabcr) 30 mg PO PM BUZZ Stop: 02/09/20 20:59 Last Admin: 01/10/20 20:56 Dose: 30 mg Documented by: Ondansetron HCl (Ondansetron Inj 2 Mg/Ml 2 Ml Vial) 4 mg IV Q6H PRN PRN Reason: Nausea &/or Vomiting Stop: 02/09/20 15:42 Ondansetron HCl (Ondansetron 4 Mg Od Tab) 4 mg PO Q6H PRN PRN Reason: Nausea Stop: 02/09/20 15:42 Oxycodone HCl (Oxycodone Hcl Ir 5 Mg Tab (Immediate Release)) 5 - 10 mg PO Q4H PRN PRN Reason: Moderate-Severe Pain & Pre PT Stop: 01/24/20 15:42 Pantoprazole Sodium (Pantoprazole 40 Mg Tab) 40 mg PO PM BUZZ Stop: 02/09/20 20:59 Last Admin: 01/10/20 20:56 Dose: 40 mg Documented by: Pneumococcal Polyvalent Vaccine (Do Not Administer Pneumococcal Vaccine) 1 ea N/A PRN PRN PRN Reason: Notification Stop: 02/09/20 15:42 Polyethylene Glycol (Polyethylene (Miralax) 17 Gm Pack) 17 gm PO Q6 BUZZ Stop: 02/10/20 05:59 Last Admin: 01/11/20 05:28 Dose: 17 gm Documented by: Polymyxin/Trimethoprim Sulfate (Trimethoprim/Polymyxin B) 2 drops OPL QID BUZZ Stop: 02/09/20 17:09 Last Admin: 01/11/20 08:46 Dose: 2 drops Documented by: Senna/Docusate Sodium (Docusate Sodium/Senna 50/8.6mg Tab) 2 tab PO HS BUZZ Stop: 02/09/20 20:59 Last Admin: 01/10/20 20:56 Dose: 2 tab Documented by: Simvastatin (Simvastatin 40 Mg Tab) 40 mg PO QAM BUZZ Stop: 02/09/20 20:59 Last Admin: 01/11/20 08:45 Dose: Not Given Documented by: Sodium Biphosphate/Sodium Phosphate (Sod Phosphate/Sod Biphosphate Enema 132 Ml Btl) 132 ml VT ONE PRN PRN Reason: Constipation Stop: 02/09/20 15:42 Tramadol HCl (Tramadol Hcl 50 Mg Tablet) 50 - 100 mg PO Q4H PRN PRN Reason: Moderate-Severe Pain & Pre PT Stop: 02/09/20 15:42 Vitamin D (Cholecalciferol 1,000 Units 25 Mcg Tab) 1,000 units PO [facility] Stop: 02/10/20 08:59 Last Admin: 01/11/20 08:46 Dose: 1,000 units Documented by:
--- NOTE | 2020-01-11 09:26 | Hospitalist Progress Note ---
Date of Service January 11, 2020 Assessment & Plan (1) Neurogenic claudication due to lumbar spinal stenosis: - POD#1 L4-S1 decompression and fusion, L3-L4 hardware removal by Dr. Valverde - activity and wound care orders as per ortho - pain control with bowel regimen - PT/OT - monitor H/H for acute blood loss anemia and transfuse blood products PRN - EBL 200 cc; EILEEN drain 500ml -H/H stable 11.9 and 35.5 (2) Hypertension: BP low side initally this morning, improved to 123/77 during my exam continue lisinopril (3) Raynauds disease: Continue nifedipine (4) DVT prophylaxis: TEDs/SCDs as per spine Ortho Thank you for this consultation. We will follow the patient with you during their hospital stay. You can reach a member of the [facility] Hospitalist Team 11/10 via pager @ [phone]. Admission and Anticipated Discharge Date Admission Date: January 10, 2020 Supervising Physician Co-Signing Physician Notes Pt seen and examined by me, care coordinated with Saumya Roberts PA-C, please see her note above for further detail. Pt is a 74 y/o male with HTN, Raynaud's disease, hyperlipidemia, who is status post L4-S1 decompression and fusion and L3 through L4 hardware removal yesterday by Dr. Valverde. Postoperatively, the patient is doing well. He is currently sitting up in the chair, in NAD, denies any significant pain. States he has been ambulating and his Markham catheter was removed this AM. Pt has not voided yet. He currently denies any numbness, tingling, weakness to lower extremities. No chest pain or shortness of breath. Denies lightheadedness or dizziness, fevers, or chills. No abdominal pain or nausea. He is alert and oriented x3, answering questions appropriately. Lungs are clear to auscultation b/l w/o any wheezing, rhonchi, crackles. Heart sounds regular. Abdomen is soft, nontender, nondistended. Pt is moving extremities spontaneously. Skin is warm, dry, well perfused. EILEEN drain noted, drains serosang. liquid. Hgb down to~12, will cont. to monitor, mild post op anemia expected, no need for blood transfusion at this time. Marquis Jarvis MD Subjective Pt was seen and examined in room 306. Follow up lumbar surgery POD #1. Sitting up in chair. "I need to keep moving that seems to help my pain the best." Pain is worse laying down or leaning back. Continues with markham cath, to be removed this morning. Passing gas and tolerating diet. Denies f/c/s, chest pain, sob, n/v/d, abd pain. Review of Systems Review of Systems: All systems reviewed & are unremarkable except as noted in HPI & below Physical Exam Physical Exam: Gen: WD/WN, M, NAD, A&O x3 HEENT: Normocephalic, atraumatic, conjunctivae moist, sclerae anicteric, mucous membranes moist. Lung: Clear to Auscultation bilaterally, no wheezes/rales/rhonchi Heart: Regular rate, regular rhythm, no murmurs, rubs, or gallops Abdomen: Soft, NT, ND +BS x 4 Extremities: No edema, lumbar dressing CDI, EILEEN drain serosang drainage Skin: Warm, no rash, negative turgor. : markham cath in place draining clear yellow urine Results & Data Results & Data ([facility]) Vital Signs (Past 12 Hours) Vital Signs Temp Pulse Resp BP Pulse Ox 01/11/20 07:50 36.4 C L 105 H 18 131/78 96 01/11/20 03:28 36.7 C 97 H 16 97/61 L 98 01/10/20 22:33 37.0 C 107 H 16 135/83 99
--- NOTE | 2020-01-11 12:09 | Orthopedic Progress Note ---
Date of Service January 11, 2020 Assessment & Plan (1) Neurogenic claudication due to lumbar spinal stenosis: Admission and Anticipated Discharge Date Admission Date: January 10, 2020 At this time continue physical therapy monitor his EILEEN output anticipate discha rge home tomorrow with home health. Subjective Back pain controlled leg pain improved Physical Exam Physical Exam: Patient is good strength testing appears comfortable. Results & Data ([facility]) Vital Signs (Past 12 Hours) Vital Signs Temp Pulse Resp BP Pulse Ox 01/11/20 11:15 36.6 C 99 H 18 110/70 98 01/11/20 07:50 36.4 C L 105 H 18 131/78 96 01/11/20 03:28 36.7 C 97 H 16 97/61 L 98
[2020-01-11] MEDS: ACETAMINOPHEN 500 MG TAB PO PRN ×2 (13:38→20:26)
[2020-01-11] MEDS ORDERED: Nursing to Pharmacy Communication SCH (19:30)
[2020-01-11 19:46] LABS: Hematocrit (blood only) 34.3 % (42-52); Hemoglobin 11.5 g/dL (14.0-18.0)
[2020-01-11] MEDS: GABAPENTIN 600 MG TAB PO SCH (20:28)
[2020-01-11] MEDS: PANTOprazole 40 MG TAB PO SCH (20:28)
[2020-01-11] MEDS: DOCUSATE SODIUM/SENNA 50/8.6MG TAB PO SCH (20:28)
[2020-01-11] MEDS: NIFEdipine EXTENDED REL 30 MG TABCR PO SCH (20:32)
[2020-01-12] MEDS: ACETAMINOPHEN 500 MG TAB PO PRN (06:02)
[2020-01-12 06:23] LABS: Hematocrit (blood only) 35.6 % (42-52); Hemoglobin 11.9 g/dL (14.0-18.0); Mean Corpuscular Hemoglobin 29.4 pg (25-34); Mean Corpuscular Hgb Conc 33.4 g/dL (32-36); Mean Corpuscular Volume 87.9 fL (80-100); Platelet Count 286 K/uL (130-400); RDW Coefficient of Variation 13.9 % (11.5-14.5); Red Blood Count 4.05 M/uL (4.7-6.1); White Blood Count 11.43 K/uL (4.8-10.8)
[2020-01-12 06:51] LABS: BUN Creatinine Ratio 13.4 (10-20); Calcium 9.3 mg/dl (8.5-10.1); Creatinine Clr Calc Pharmacy 51.2 ml/min; Est GFR (Non-African American) 62.1; Potassium 4.3 mmol/L (3.5-5.1)
--- NOTE | 2020-01-12 08:14 | Hospitalist Progress Note ---
Date of Service January 12, 2020 Assessment & Plan (1) Neurogenic claudication due to lumbar spinal stenosis: - POD#2 L4-S1 decompression and fusion, L3-L4 hardware removal by Dr. Valverde - activity and wound care orders as per ortho - pain control with bowel regimen - PT/OT - monitor H/H for acute blood loss anemia and transfuse blood products PRN - H/H stable from yesterday at 11.9 (01/12/20) (2) Hypertension: BP 106/68 early this morning, no symptoms continue lisinopril for now monitor BP, if persistently lower, hold lisinopril (3) Raynauds disease: Continue nifedipine (4) DVT prophylaxis: TEDs/SCDs as per spine Ortho Thank you for this consultation. We will follow the patient with you during their hospital stay. You can reach a member of the [facility] Hospitalist Team 11/10 via pager @ [phone]. Admission and Anticipated Discharge Date Admission Date: January 10, 2020 Subjective Patient is currently sitting up in the chair, in no acute distress. Denies any fevers, chills, chest pain, shortness of breath, abdominal pain, nausea or vomiting. No acute events overnight. He is eating, ambulating, without much difficulty. Denies any significant pain. Review of Systems Review of Systems: All systems reviewed & are unremarkable except as noted in HPI & below Constitutional: no fever and no chills Respiratory: no cough and no dyspnea Cardiovascular: no chest pain and no palpitations Gastrointestinal: no abdominal pain, no nausea and no vomiting Physical Exam Physical Exam: Gen: WD/WN, elderly male, sitting up in a chair, in NAD, A&O x3 HEENT: Normocephalic, atraumatic, conjunctivae moist, sclerae anicteric, mucous membranes moist. Lung: Clear to Auscultation bilaterally, no wheezes/rales/rhonchi Heart: Regular rate, regular rhythm, no murmurs, rubs, or gallops Abdomen: Soft, NT, ND +BS x 4 Extremities: No edema, lumbar dressing CDI, EILEEN drain serosang drainage Neuro: alert and oriented x3 and answering questions appropriately, no facial asymmetry, speech fluent, moves all 4 extremities, ambulating Skin: Warm, no rash, negative turgor. : markham cath removed yesterday Results & Data Results & Data ([facility]) Vital Signs (Past 12 Hours) Vital Signs Temp Pulse Resp BP Pulse Ox 01/12/20 06:15 36.7 C 95 H 16 106/68 96 01/11/20 23:15 37.5 C 92 H 16 109/68 96 01/11/20 20:31 93 H 113/73 Laboratory Results 01/12/20 01/12/20 01/11/20 Range/Units 05:45 05:45 19:38 WBC 11.43 H (4.8-10.8) K/uL RBC 4.05 L (4.7-6.1) M/uL Hgb 11.9 L 11.5 L (14.0-18.0) g/dL Hct 35.6 L 34.3 L (42-52) % MCV 87.9 (80-100) fL MCH 29.4 (25-34) pg MCHC 33.4 (32-36) g/dL RDW Std Deviation 45.0 (36.4-46.3) fL RDW Coeff of Yelena 13.9 (11.5-14.5) % Plt Count 286 (130-400) K/uL MPV 9.0 (7.4-10.4) fL Sodium 136 (136-145) mmol/L Potassium 4.3 (3.5-5.1) mmol/L Chloride 104 (98-107) mmol/L Carbon Dioxide 28 (21-32) mmol/L Anion Gap 4.0 (3-11) BUN 16 (7-18) mg/dl Creatinine 1.16 (0.6-1.4) mg/dl Est Cr Clr Drug Dosing 51.2 ml/min Est GFR ( Amer) 72.0 Est GFR (Non-Af Amer) 62.1 BUN/Creatinine Ratio 13.4 (10-20) Glucose 108 H (70-99) mg/dl Calcium 9.3 (8.5-10.1) mg/dl
[2020-01-12] MEDS: GABAPENTIN 300 MG CAP PO SCH (08:55)
[2020-01-12] MEDS: FLUTICASONE PROPIONATE NA SPR 16 GM BTL SCH (08:55)
[2020-01-12] MEDS: CHOLECALCIFEROL 1,000 UNITS 25 MCG TAB PO SCH (08:56)
[2020-01-12] MEDS: TRIMETHOPRIM/POLYMYXIN B OPL SCH ×2 (08:56→13:12)
[2020-01-12] MEDS: lisinopril 10 MG TAB PO SCH (08:56)
[2020-01-12] MEDS: SIMVASTATIN 40 MG TAB PO SCH ×2 (08:56→08:59)
[2020-01-12] MEDS ORDERED: DEXAMETHASONE SOD PHOSPHATE 8 MG in SYRINGE 0 ML IV SCH (09:00)
--- NOTE | 2020-01-12 10:28 | Discharge Summary ---
Date of Service January 12, 2020 Admission HPI Per Admitting Provider This is a 74-year-old male who presents with chronic persistent back and leg pain. Failing course of nonoperative care is here for surgical invention. Principal Diagnosis Lumbar spinal stenosis with neurogenic claudication Discharge Data Allergies Allergy/AdvReac Type Severity Reaction Status Date / Time amitriptyline Allergy Unknown UNKNOWN Verified 01/10/20 11:01 REACTION cyclobenzaprine Allergy Unknown UNKNOWN Verified 01/10/20 11:01 REACTION prednisone Allergy Elevated Verified 01/10/20 11:01 BP, chest pain, couldn't breathe codeine AdvReac Mild GI UPSET Verified 01/10/20 11:01 etodolac AdvReac Mild gi upset Verified 01/10/20 11:01 morphine AdvReac Mild GI UPSET Verified 01/10/20 11:01 Consultations 01/10/20 15:43 Consult Case Management - Discharge Planning Routine Consult Hospitalist Routine Procedures Performed Operation Date: 01/10/20 11:40 Actual Procedures p L4-S1 Decompression and Fusion, L3-L4 Hardware Removal, Spinal Cord Monitoring(Not Applicable) - Rodolfo Valverde DO Ordered Studies 01/10/20 11:40 FL fluoroscopy <1hr Routine FL lumbar spine 2-3V Routine Hospital Course (1) Neurogenic claudication due to lumbar spinal stenosis: Patient with lumbar depression fusion 12 as well as taken to orthopedic floor postoperatively postop day 1 is up and ambulating progressed to postop day #2. EILEEN drain decreasing probably. Excellent strength testing. Pain well controlled. Subsequent discharge home. Discharge orders instructions from the chart for further review. Total Time Total Time Spent Total Time Spent (In Minutes): 20 minutes Discharge Plan Discharge Items Patient Disposition: Home - Home Health Services Reason For Visit: SPinal stenosis, Lumbar Region without Neurogenic Discharge Diagnosis: Lumbar spinal stenosis with neurogenic claudication Activity: As commented below Non-emergency contact: Primary Care Provider Call non-emergency contact if: you have any medication questions Follow-up/Referrals: Susan Lugo M.D. [Primary Care Provider] - Diet: Regular Addtl Attending Provider Instructions: ACTIVITY RECOMMENDATIONS: SELF CARE INSTRUCTIONS AFTER THORACIC/LUMBAR FUSIONS 1. You may walk to your tolerance. It is good exercise for your legs and back. Expect some back and intermittent leg aches and pains. 2. You may perform "counter-top" level activities (make a sandwich, giuliana with a project, etc.). 3. No bending or lifting of more than 10 pounds or back twisting of any nature (roll like a log when turning in bed). 4. You may ride in a car for 20-30 minutes at a time. No driving until after your first visit with your doctor. 5. Frequent changes of position and restricting sitting to 30 minutes at a time will help limit the amount of back spasms and stiffness you may experience. 6. You may discontinue the use of ambulatory aids (cane, crutches, etc.) once your strength and confidence allow. 7. You may sea captain the shower and let water strike your incision when you arrive home at least once daily. Do not take a tub bath, sit in a hot tub or go into a swimming pool until after your first recheck in the office. SPECIAL CARE INSTRUCTIONS: VERY IMPORTANT TO READ AND REVIEW A. Your surgical incision has been closed with a cosmetic suture under the skin that will dissolve in about 6 weeks. In 14 days, you can use a pair of clean scissors and cut the suture that is left outside of the skin at the ends of your incision. 1. The small skin tapes can be removed 7 days after surgery if they have not fallen off by that point. 2. You may keep the wound open to air as much as possible to promote healing after post-op day number 5 unless told otherwise by your doctor. 3. If you think the wound looks like it is becoming infected (redness or worsening drainage) and/or you are experiencing fever, chill or worsening back pain and muscle spasms, contact the office so that we may evaluate you as soon as possible. B. Complications are uncommon, but please contact us if you have any signs or symptoms of: 1. wound infection (fever higher than 102.5 degrees F, redness, separation of wound, drainage, or increasing pain from the incision) 2. blood clots in legs (pain, swelling, redness and warmth in legs) 3. urinary tract infection (fever higher than 102.5 degrees F, burning upon urination or increased frequency of urination) 4. nerve problems (inability to walk on your toes or heels, numbness, loss of bowel or bladder control) 5. any other symptoms that concern you C. Please call the office at if you have any concerns or questions about your operation or recovery. D. No smoking! Smoking drastically decreases the chance of a solid fusion. E. Do not take any anti-inflammatory medications (Indocin, Advil, Motrin, Aspirin, Naprosyn, etc.) as these may inhibit the chance of a solid fusion. Tylenol is okay to take for pain. MANAGING PAIN AFTER SPINAL SURGERY 1. Narcotic medication is intended for short-term use and will be provided for surgical pain. Surgical pain usually lasts for a period of 4-6 weeks. Narcotic medication includes Percocet, Vicodin, Darvocet, Tylenol #3 or Lortab. 2. Longer-term pain is more appropriately treated with non-narcotic medication such as Tylenol ES. 3. Muscle spasm is not appropriately treated with narcotics. Muscle relaxers such as Soma, Flexeril or Skelaxin can be used along with Tylenol ES. 4. Remember that we all live with some "aches and pains". This is not unusual or uncommon after an injury or as we get older. a. Back pain is expected and may include muscle spasms for 4 to 6 weeks after surgery. The pain should gradually improve. If the pain worsens for no apparent reason, please contact the office. b. Intermittent leg pain may also be experienced and should not be concerned about unless it worsens for no apparent reason. If so, please contact the office. 5. We will provide appropriate medication within the normal guidelines of their prescribed use. We will also be very cautious and aware of potential abuse and extended duration of patients' medication needs. a. Pain medications are for your comfort and to assist with sleep and rest so that the tissue can heal. They are not provided in order to return to normal activity and should not be used through the day. To do so or worsening pain at night can result from ongoing tissue damage and development of tolerance to the prescribed medicine. 6. Please allow 2-3 days to process refills. Prescriptions will not be mailed but must be picked up at the office. FOLLOW UP VISIT: Keep your scheduled follow-up appointment. Any questions, please call the office at . Pending Studies at Discharge: No Stand-Alone Forms: [facility] [employer], Smoking Cessation Medications and DC Order Prescriptions: New oxycodone 5 mg tablet 5 mg PO Q6H PRN (Reason: pain, severe) Qty: 20 RF: 0 tramadol 50 mg tablet 50 mg PO Q6H PRN (Reason: pain, moderate) Qty: 20 RF: 0 Continued gabapentin 600 mg Tablet 600 mg PO HS RF: 0 nifedipine 30 mg Tablet Extended Release 30 mg PO PM RF: 0 simvastatin 40 mg Tablet 40 mg PO PM RF: 0 coenzyme Q10 [Co Q-10] 50 mg Capsule 50 mg PO PM RF: 0 pantoprazole 40 mg Tablet,Delayed Release (Dr/Ec) 40 mg PO PM RF: 0 lisinopril 10 mg Tablet 10 mg PO QAM RF: 0 fluticasone propionate 50 mcg/actuation Hinkley,Suspension 1 spray INTRANASAL QAM RF: 0 cholecalciferol (vitamin D3) [Vitamin D3] 25 mcg (1,000 unit) Tablet 25 mcg PO QAM RF: 0 gabapentin 300 mg Tablet Extended Release 24 Hr 300 mg PO QAM RF: 0 Discontinued meloxicam 15 mg Tablet 15 mg PO QAM RF: 0 Discharge Orders: Discharge Order (Routine); Ordered 01/12/20 Ordered By: Rodolfo Valverde Admission Data Admit Date/Time: 01/10/20 14:09 Attending Provider: Rodolfo Valverde Admit Provider: Rodlofo Valverde Primary Care Provider: Susan Lugo Other Providers: Eladio Jarvis
== END 2020-01-12 14:56 | disposition home or self-care (01) | DRG 454 ==
LOC: ASU 10:28 → 3E 14:09